=== PATIENT | female | born 1950 | race African-American/Black ===

== ENCOUNTER 2018-12-04 02:43 | Emergency (ER) | payer OTHER, MEDICAID ==
[~2018-12-04] VITALS: Ht 149.9 cm; Wt 77.0 kg
[2018-12-04] MEDS ORDERED: TRAMADOL 50MG TABLET PO ONE (06:15)
[2018-12-04 06:20] VITALS: BP 119/76
== END 2018-12-04 08:15 | disposition home or self-care (01) ==
LOC: ER 02:43
DX: M25.562 Pain in left knee (principal); R03.0 Elevated blood-pressure reading, without diagnosis of hypertension
CPT/HCPCS: 73562; 99283